=== PATIENT | female | born 1955 | race Caucasian/White ===

== ENCOUNTER 2016-08-05 13:06 | Inpatient (IN) | payer MEDICAID ==
[~2016-08-05] VITALS: Ht 170.2 cm; Wt 58.5 kg
[2016-08-05 13:06] VITALS: BP 113/57; PULSE 77; RESP 19; TEMP 97.2; O2SAT 99
[2016-08-05] MEDS ORDERED: SULFAMETHOXAZOLE/TRIMETHOPR DS 1 TABLET PO ONE (14:00)
[2016-08-05] MEDS ORDERED: CEPHALEXIN 500 MG CAPSULE PO ONE (14:00)
[2016-08-05] MEDS ORDERED: PIPERACILLIN/TAZO 3.375 GM in NS 50 ML IV SCH (15:45)
[2016-08-05 16:29] VITALS: BP 110/70; PULSE 76; RESP 20; TEMP 97.2; O2SAT 99
[2016-08-05 16:57] LABS: BASOPHILS # (AUTO) 0.1 K/uL (0.0-0.2); BASOPHILS % (AUTO) 0.4 % (0.0-2.0); EOSINOPHILS # (AUTO) 0.2 K/uL (0.0-0.4); EOSINOPHILS % (AUTO) 1.5 % (0.0-4.0); HEMOGLOBIN 13.4 g/dL (12.0-16.0); LYMPHOCYTES # (AUTO) 3.4 K/uL (1.0-5.5); LYMPHOCYTES % (AUTO) 20.9 % (20.5-51.5); MEAN CORPUSCULAR HEMOGLOBIN 30 pg (27-31); MEAN CORPUSCULAR HGB CONC 34 % (32-36); MEAN CORPUSCULAR VOLUME 90 fL (79.0-98.0); MONOCYTES # (AUTO) 1.5 K/uL (0.0-1.0); NEUTROPHILS # (AUTO) 11.2 K/uL (1.8-7.7); NEUTROPHILS % (AUTO) 68.2 % (40.0-70.0); PLATELET COUNT (AUTO) 288 K/uL (130-430); RED BLOOD CELL COUNT(AUTO) 4.46 MIL/uL (4.2-6.2); RED CELL DISTRIBUTION WIDTH 12.2 % (9.0-15.0); WHITE BLOOD COUNT (AUTO) 16.4 K/uL (4.8-10.8)
[2016-08-05] MEDS ORDERED: FLU VACC QS 2016-17(36MOS+)/PF 0.5 ML/SYR SYRINGE I.M. PRN (17:00)
[2016-08-05 17:03] LABS: CALCIUM 11.7 mg/dL (8.4-11.0); CREATININE 0.66 mg/dL (0.55-1.30); POTASSIUM 4.4 mmol/L (3.5-5.1)
[2016-08-05 17:11] LABS: ALBUMIN 3.3 g/dL (3.4-4.8); TOTAL BILIRUBIN 0.6 mg/dL (0.0-1.0); TOTAL PROTEIN, SERUM 9.3 g/dL (6.4-8.3)
[2016-08-05] MEDS ORDERED: VANCOMYCIN HCL 1,000 MG in NS 250 ML IV ONE (18:00)
[2016-08-05 19:00] VITALS: BP 104/61; PULSE 75; RESP 16; TEMP 97.4; O2SAT 98
[2016-08-05] MEDS ORDERED: DOXY-4 PO (19:47)
[2016-08-05] MEDS ORDERED: ASCO500T20 PO (19:47)
[2016-08-05] MEDS ORDERED: LEVO25TA7 PO (19:47)
[2016-08-05] MEDS ORDERED: FOLI-43 PO (19:47)
[2016-08-05] MEDS ORDERED: VITD400 PO (19:47)
[2016-08-05] MEDS ORDERED: VITA1CAP PO (19:47)
[2016-08-05] MEDS ORDERED: THIA100T13 PO (19:47)
[2016-08-05] MEDS ORDERED: IBUP-1969 PO (19:47)
[2016-08-05] MEDS ORDERED: POTA20TA83 PO (19:47)
[2016-08-05] MEDS ORDERED: DULR10 RC (19:47)
[2016-08-05] MEDS ORDERED: MULT PO (19:47)
[2016-08-05] MEDS ORDERED: BISA5TAB10 PO (19:47)
[2016-08-05] MEDS ORDERED: LACTIN PO (19:47)
[2016-08-05 20:00] VITALS: BP 104/61; PULSE 75; RESP 16; TEMP 97.4; O2SAT 98
[2016-08-05] MEDS: ACYCLOVIR 400 MG TABLET PO SCH ×2 (22:00→22:58)
[2016-08-05] MEDS ORDERED: CLINDAMYCIN 600 mg/50mL D5W 100 ML IV ONE (22:42)
[2016-08-05] MEDS: CLINDAMYCIN 600 mg/50mL D5W 50 ML IV SCH (23:01)
[2016-08-06] VITALS: BP 106/63; PULSE 67; RESP 16; TEMP 99.5; O2SAT 97
[2016-08-06 00:46] VITALS: BP 115/70; PULSE 75; RESP 18; TEMP 98.3; O2SAT 92
[2016-08-06 04:45] VITALS: BP 105/67; PULSE 91; RESP 18; TEMP 97.7; O2SAT 95
[2016-08-06] MEDS ORDERED: VANCOMYCIN HCL 500 MG in NS 100 ML IV SCH (06:00)
[2016-08-06] MEDS: CLINDAMYCIN 600 mg/50mL D5W 50 ML IV SCH ×4 (06:04→18:11)
[2016-08-06] MEDS: ACYCLOVIR 400 MG TABLET PO SCH ×2 (06:04→18:52)
[2016-08-06 07:26] LABS: BASOPHILS # (AUTO) 0.1 K/uL (0.0-0.2); BASOPHILS % (AUTO) 0.4 % (0.0-2.0); EOSINOPHILS # (AUTO) 0.3 K/uL (0.0-0.4); EOSINOPHILS % (AUTO) 1.9 % (0.0-4.0); HEMATOCRIT 35.7 % (36-48); HEMOGLOBIN 12.2 g/dL (12.0-16.0); LYMPHOCYTES # (AUTO) 2.1 K/uL (1.0-5.5); MEAN CORPUSCULAR HEMOGLOBIN 30 pg (27-31); MEAN CORPUSCULAR HGB CONC 34 % (32-36); MEAN CORPUSCULAR VOLUME 88 fL (79.0-98.0); MONOCYTES # (AUTO) 1.2 K/uL (0.0-1.0); MONOCYTES % (AUTO) 7.1 % (1.7-9.3); NEUTROPHILS # (AUTO) 12.8 K/uL (1.8-7.7); NEUTROPHILS % (AUTO) 77.6 % (40.0-70.0); PLATELET COUNT (AUTO) 266 K/uL (130-430); RED BLOOD CELL COUNT(AUTO) 4.08 MIL/uL (4.2-6.2); RED CELL DISTRIBUTION WIDTH 12.3 % (9.0-15.0); WHITE BLOOD COUNT (AUTO) 16.5 K/uL (4.8-10.8)
[2016-08-06 07:45] LABS: ALBUMIN 3.1 g/dL (3.4-4.8); CALCIUM 11.2 mg/dL (8.4-11.0); CREATININE 0.75 mg/dL (0.55-1.30); POTASSIUM 4.1 mmol/L (3.5-5.1); THYROID STIMULATING HORMONE 0.88 uIu/mL (0.34-4.82); TOTAL BILIRUBIN 0.5 mg/dL (0.0-1.0); TOTAL PROTEIN, SERUM 8.7 g/dL (6.4-8.3)
[2016-08-06 08:00] LABS: IRON (SERUM) 64 mcg/dL (37-145); TOTAL IRON BIND. CAPACITY 269 ug/dL (250-450)
[2016-08-06 12:10] VITALS: BP 122/64; PULSE 61; RESP 16; TEMP 96.2; O2SAT 98
[2016-08-06 16:26] VITALS: BP 116/75; PULSE 91; RESP 18; TEMP 97.7; O2SAT 98
[2016-08-06 16:49] LABS: BILIRUBIN,URINE NEGATIVE (NEGATIVE); BLOOD, URINE 3+ (NEGATIVE); CLARITY/URINE CLOUDY (CLEAR); COLOR,URINE YELLOW (YELLOW); GLUCOSE,URINE NEGATIVE (NEGATIVE); KETONES,URINE NEGATIVE (NEGATIVE); LEUKOCYTE ESTERASE ,URINE 2+ (NEGATIVE); NITRITE, URINE POSITIVE (NEGATIVE); PROTEIN URINE TRACE (NEGATIVE); UROBILINOGEN,URINE 0.2 (0.2-1.0)
[2016-08-06 17:33] LABS: BACTERIA,URINE MODERATE /HPF (None Seen); WBC,URINE 20-50 /HPF (0-3)
[2016-08-06 17:36] LABS: MUCUS,URINE 1+ /LPF (None Seen)
[2016-08-06] MEDS ORDERED: BISACODYL 10 MG/SUPPOSITORY RC PRN (19:00)
[2016-08-06] MEDS ORDERED: BISACODYL 5 MG TABLET.DR (DULCOLAX) PO PRN (19:00)
[2016-08-06 20:43] VITALS: BP 119/68; PULSE 83; RESP 17; TEMP 98.1; O2SAT 96
[2016-08-06] MEDS ORDERED: POTASSIUM CHLORIDE 20 MEQ TAB.PRT.SR PO SCH (21:00)
[2016-08-06] MEDS ORDERED: DOXYCYCLINE HYCLATE 100 MG CAPSULE PO SCH (21:00)
[2016-08-06] MEDS: CIPROFLOXACIN LACT 400 MG/D5W 200 ML IV SCH (22:00)
[2016-08-06] MEDS: POTASSIUM CHLORIDE 20 MEQ TAB.PRT.SR PO SCH (22:01)
[2016-08-06] MEDS: MULTIVITAMINS TAB 1 TABLET PO SCH (22:01)
[2016-08-07] VITALS: BP 106/63; PULSE 67; RESP 16; TEMP 99.5; O2SAT 97
[2016-08-07] MEDS: ACYCLOVIR 400 MG TABLET PO SCH ×5 (01:08→21:53)
[2016-08-07] MEDS: CLINDAMYCIN 600 mg/50mL D5W 50 ML IV SCH ×4 (01:08→18:45)
[2016-08-07 04:10] VITALS: BP 119/80; PULSE 84; RESP 18; TEMP 97.9; O2SAT 98
[2016-08-07] MEDS: LEVOTHYROXINE SODIUM 0.025 MG TABLET PO SCH (06:27)
[2016-08-07 07:53] LABS: BASOPHILS # (AUTO) 0.1 K/uL (0.0-0.2); BASOPHILS % (AUTO) 0.5 % (0.0-2.0); EOSINOPHILS # (AUTO) 0.4 K/uL (0.0-0.4); EOSINOPHILS % (AUTO) 3.3 % (0.0-4.0); HEMATOCRIT 36.2 % (36-48); HEMOGLOBIN 12.5 g/dL (12.0-16.0); LYMPHOCYTES # (AUTO) 2.3 K/uL (1.0-5.5); LYMPHOCYTES % (AUTO) 18.1 % (20.5-51.5); MEAN CORPUSCULAR HEMOGLOBIN 31 pg (27-31); MEAN CORPUSCULAR HGB CONC 35 % (32-36); MEAN CORPUSCULAR VOLUME 90 fL (79.0-98.0); NEUTROPHILS # (AUTO) 8.7 K/uL (1.8-7.7); NEUTROPHILS % (AUTO) 70.1 % (40.0-70.0); PLATELET COUNT (AUTO) 295 K/uL (130-430); RED BLOOD CELL COUNT(AUTO) 4.03 MIL/uL (4.2-6.2); RED CELL DISTRIBUTION WIDTH 12.2 % (9.0-15.0); WHITE BLOOD COUNT (AUTO) 12.5 K/uL (4.8-10.8)
[2016-08-07 08:08] VITALS: BP 122/73; PULSE 82; RESP 18; TEMP 97.2; O2SAT 97
[2016-08-07 08:13] LABS: CALCIUM 11.3 mg/dL (8.4-11.0); CREATININE 0.7 mg/dL (0.55-1.30); POTASSIUM 3.8 mmol/L (3.5-5.1)
[2016-08-07 08:17] LABS: FOLATE (FOLIC ACID) >20.0 ng/mL (>3.0)
[2016-08-07] MEDS: VITAMIN B COMPLEX 1 CAP/TAB PO SCH (09:00)
[2016-08-07] MEDS: CIPROFLOXACIN LACT 400 MG/D5W 200 ML IV SCH ×2 (09:36→21:51)
[2016-08-07] MEDS: POTASSIUM CHLORIDE 20 MEQ TAB.PRT.SR PO SCH ×2 (10:33→21:52)
[2016-08-07] MEDS: THIAMINE HCL 100 MG TABLET PO SCH (10:34)
[2016-08-07] MEDS: FOLIC ACID 1 MG TABLET PO SCH (10:34)
[2016-08-07] MEDS: ASCORBIC ACID 500 MG TABLET PO SCH (10:34)
[2016-08-07] MEDS: MULTIVITAMINS TAB 1 TABLET PO SCH ×2 (10:34→21:52)
[2016-08-07] MEDS: CHOLECALCIFEROL (VITAMIN D3) 2,000 UNIT TABLET PO SCH (10:34)
[2016-08-07 11:28] VITALS: BP 119/66; PULSE 84; RESP 19; TEMP 97.8; O2SAT 92
[2016-08-07 15:27] VITALS: BP 97/70; PULSE 90; RESP 19; TEMP 97; O2SAT 98
[2016-08-07 19:55] VITALS: BP 106/65; PULSE 95; RESP 18; TEMP 98.8; O2SAT 97
[2016-08-08] MEDS: CLINDAMYCIN 600 mg/50mL D5W 50 ML IV SCH ×4 (00:27→17:31)
[2016-08-08 01:06] VITALS: BP 115/70; PULSE 73; RESP 18; TEMP 96.6; O2SAT 93
[2016-08-08 04:13] VITALS: BP 112/69; PULSE 74; RESP 19; TEMP 98.5; O2SAT 98
[2016-08-08] MEDS: ACYCLOVIR 400 MG TABLET PO SCH ×2 (05:21→16:27)
[2016-08-08 07:59] VITALS: BP 101/65; PULSE 81; RESP 18; TEMP 97; O2SAT 95
[2016-08-08] MEDS: LEVOTHYROXINE SODIUM 0.025 MG TABLET PO SCH (08:10)
[2016-08-08] MEDS: MULTIVITAMINS TAB 1 TABLET PO SCH ×2 (09:48→20:35)
[2016-08-08] MEDS: CIPROFLOXACIN LACT 400 MG/D5W 200 ML IV SCH (09:48)
[2016-08-08] MEDS: CHOLECALCIFEROL (VITAMIN D3) 2,000 UNIT TABLET PO SCH (09:49)
[2016-08-08] MEDS: ASCORBIC ACID 500 MG TABLET PO SCH (09:49)
[2016-08-08] MEDS: FOLIC ACID 1 MG TABLET PO SCH (09:50)
[2016-08-08] MEDS: VITAMIN B COMPLEX 1 CAP/TAB PO SCH (09:50)
[2016-08-08] MEDS: POTASSIUM CHLORIDE 20 MEQ TAB.PRT.SR PO SCH ×2 (09:50→20:35)
[2016-08-08] MEDS: THIAMINE HCL 100 MG TABLET PO SCH (09:50)
[2016-08-08 11:26] VITALS: BP 137/57; PULSE 81; RESP 19; TEMP 97; O2SAT 97
[2016-08-08 12:32] VITALS: Ht 170.2 cm; Wt 58.5 kg
[2016-08-08 14:43] LABS: BASOPHILS # (AUTO) 0.1 K/uL (0.0-0.2); BASOPHILS % (AUTO) 0.5 % (0.0-2.0); EOSINOPHILS # (AUTO) 0.5 K/uL (0.0-0.4); EOSINOPHILS % (AUTO) 3.3 % (0.0-4.0); HEMATOCRIT 37.2 % (36-48); HEMOGLOBIN 12.7 g/dL (12.0-16.0); LYMPHOCYTES # (AUTO) 2.5 K/uL (1.0-5.5); LYMPHOCYTES % (AUTO) 17.5 % (20.5-51.5); MEAN CORPUSCULAR HEMOGLOBIN 30 pg (27-31); MEAN CORPUSCULAR HGB CONC 34 % (32-36); MEAN CORPUSCULAR VOLUME 89 fL (79.0-98.0); MONOCYTES % (AUTO) 7.4 % (1.7-9.3); NEUTROPHILS # (AUTO) 10.1 K/uL (1.8-7.7); NEUTROPHILS % (AUTO) 71.3 % (40.0-70.0); PLATELET COUNT (AUTO) 359 K/uL (130-430); RED BLOOD CELL COUNT(AUTO) 4.19 MIL/uL (4.2-6.2); RED CELL DISTRIBUTION WIDTH 12.3 % (9.0-15.0); WHITE BLOOD COUNT (AUTO) 14.2 K/uL (4.8-10.8)
[2016-08-08 14:51] LABS: CALCIUM 11.1 mg/dL (8.4-11.0); CREATININE 0.78 mg/dL (0.55-1.30); POTASSIUM 4.2 mmol/L (3.5-5.1)
[2016-08-08 15:47] VITALS: BP 107/64; PULSE 94; RESP 19; TEMP 97.3; O2SAT 93
[2016-08-08 16:41] VITALS: BP 107/64; PULSE 94; RESP 18; TEMP 97.3; O2SAT 96
== END 2016-08-08 21:30 | DRG 720 ==
LOC: SED 13:06 → SMU 15:43
PROVIDERS: ADMIT Internal Medicine; ATTEND Internal Medicine
DX: A41.9 Sepsis, unspecified organism (principal); E87.1 Hypo-osmolality and hyponatremia; G62.1 Alcoholic polyneuropathy; B02.9 Zoster without complications; E44.1 Mild protein-calorie malnutrition; K70.9 Alcoholic liver disease, unspecified; L03.115 Cellulitis of right lower limb; E03.9 Hypothyroidism, unspecified; M47.9 Spondylosis, unspecified; L03.312 Cellulitis of back [any part except buttock and flank]; L50.9 Urticaria, unspecified; A46 Erysipelas; F32.9 Major depressive disorder, single episode, unspecified; Z88.0 Allergy status to penicillin; Z91.011 Allergy to milk products; Z68.20 Body mass index [BMI] 20.0-20.9, adult
CPT/HCPCS: 36415; 80048; 80053; 81000-TC; 82306; 82607; 82746; 83540-TC; 83550-TC; 83735-TC; 84443-TC; 85025; 85730-TC; 87040-TC; 87081; 87086; 97110-GP; 97530-GP; 99285; J0744; J3370; J3490; J7050